=== PATIENT | female | born 1990 | race Caucasian/White ===

== ENCOUNTER 2017-03-04 11:03 | Inpatient (IN) | payer MEDICAID ==
[~2017-03-04 11:03] MED LIST: Marcaine Mpf 0.5% Vial 30 Ml IV ONE; PHENYLEPHRINE HCL IV ONE; Pitocin 10 UNITS/ML IV ONE; Zofran 4 MG/2 ML VIAL IV ONE
[2017-03-04 11:36] LABS: BASOPHIL % 0.3 % (0.0-0.4); Eosinophil % 2.1 % (0.00-5.0); Granulocytes % 69.7 % (36.0-66.0); Lymphocytes % 20.3 % (24.0-44.0); Mean Cell Volume 89.1 fl (78-100); Mean Corpuscular Hemoglobin 29.4 pg (26-32); Mean Platelet Volume 11.9 fl (6-9.5); Monocytes % 7.6 % (0.0-12.0); Platelet Count 132 K/mm3 (150-450); Red Blood Count 3.77 M/mm3 (4.1-5.4); White Blood Count 13.7 K/mm3 (4.0-10.5)
[2017-03-04] MEDS: Lactated Ringers 1,000 ML IV SCH ×2 (12:00→15:24)
[2017-03-04 12:01] LABS: ALBUMIN 2.2 g/dL (3.4-5.0); ALKALINE PHOSPHATASE 183 U/L (46-116); ANION GAP 15.7 MEQ/L (5-15); BLOOD UREA NITROGEN 15 mg/dL (9-20); CHLORIDE 107 mEq/L (98-107); Carbon Dioxide 19.7 mEq/L (21-32); Glucose 78 MG/DL (70-110); Potassium 4.3 mEq/L (3.5-5.1); SGOT/AST 51 U/L (15-37); SGPT/ALT 38 U/L (12-78); SODIUM 138 mEq/L (136-145); Total Protein 6.3 gm/dL (6.4-8.2)
[2017-03-04] MEDS ORDERED: Lactated Ringers 1,000 ML IV ONE ×2 (12:09→15:44)
[2017-03-04 12:10] LABS: INR 0.89 (0.8-3.0); PROTIME 9.9 SECONDS (9.95-12.35)
[2017-03-04 12:22] LABS: PTT 27.8 SECONDS (25.3-37.0)
[2017-03-04] MEDS: Magnesium Sulfate 40 Gm/1000 Ml H2O Premix*** 1,000 ML IV SCH (12:30)
[2017-03-04] MEDS ORDERED: Calcium Gluconate 10% 1000 MG IV ONE (12:50)
[2017-03-04] MEDS ORDERED: BRETHINE 1 MG/ML SQ PRN (13:43)
[2017-03-04] MEDS ORDERED: Astramorph-Pf 5 MG/10 ML IV ONE (14:00)
[2017-03-04] MEDS ORDERED: PITOCIN 30 UNITS/ LR 500 ML 500 ML IV SCH (14:00)
[2017-03-04 14:10] LABS: Collection Type VOID
[2017-03-04 14:11] LABS: Bacteria FEW /HPF (NEGATIVE); COMPLETE URINE MICROSCOPIC? YES; Epithelial Cells FEW /HPF (FEW); Mucus MODERATE /HPF (NEGATIVE); WBC 0-2 /HPF (0-5)
[2017-03-04] MEDS ORDERED: Reglan 10 MG/2 ML IV SCH (15:15)
[2017-03-04] MEDS ORDERED: Pepcid 20 MG VIAL IV SCH (15:15)
[2017-03-04] MEDS ORDERED: BICITRA 30 ML CUP PO SCH (15:15)
[2017-03-04] MEDS ORDERED: KEFZOL 1 GM ONE (15:44)
[2017-03-04] MEDS ORDERED: HOLD NARCOTIC ANALGESICS AND SEDATIVES X24 HR MC PRN (18:50)
[2017-03-04] MEDS ORDERED: DEMEROL 50 MG IV PRN (18:50)
[2017-03-04] MEDS ORDERED: PERCOCET TABLET 5/325MG PO PRN (18:50)
[2017-03-04] MEDS ORDERED: BENADRYL 50 MG/ML IV PRN (18:50)
[2017-03-04] MEDS ORDERED: Narcan 0.4 MG/ML IV PRN (18:50)
[2017-03-04] MEDS ORDERED: Nubain 10 MG/ML IV PRN (18:50)
[2017-03-04] MEDS ORDERED: Zofran 4 MG/2 ML VIAL IV PRN (18:50)
[2017-03-04] MEDS ORDERED: CLARITIN 10 MG PO PRN (18:50)
[2017-03-04] MEDS ORDERED: MORPHINE SULFATE 2 MG INJ IV PRN (18:50)
[2017-03-04] MEDS ORDERED: Anucort-HC SUPPOSITORY PR PRN (18:53)
[2017-03-04] MEDS ORDERED: MOTRIN 400 MG PO PRN (18:53)
[2017-03-04] MEDS ORDERED: CORTISONE 1% CREAM TP PRN (18:53)
[2017-03-04] MEDS ORDERED: LANSINOH 40 GM TOP PRN (18:53)
[2017-03-04] MEDS ORDERED: Dulcolax 10 MG SUPP PR PRN (18:53)
[2017-03-04] MEDS ORDERED: Phenergan 25 MG INJ IM PRN (18:53)
[2017-03-04] MEDS ORDERED: Adacel Vial IM ONE (18:53)
[2017-03-04] MEDS ORDERED: DEMEROL 75 MG IM PRN (18:53)
[2017-03-04] MEDS ORDERED: Dermoplast Spray TP PRN (18:53)
[2017-03-04] MEDS ORDERED: M-M-R II Vaccine With Diluent SQ ONE (18:53)
[2017-03-04] MEDS: Dextrose 5%-Lr IV Solution 1000 ML 1,000 ML IV SCH (19:02)
[2017-03-04 20:34] LABS: BASOPHIL % 0.1 % (0.0-0.4); Eosinophil % 0.3 % (0.00-5.0); Lymphocytes % 8.3 % (24.0-44.0); Mean Platelet Volume 11.4 fl (6-9.5); Monocytes % 5.3 % (0.0-12.0); Platelet Count 119 K/mm3 (150-450); Red Blood Count 3.56 M/mm3 (4.1-5.4); Red Cell Distribution Width 13.9 % (11.5-14.0)
[2017-03-04 20:36] LABS: Mean Corpuscular Hemoglobin 29.7 pg (26-32)
[2017-03-04] MEDS ORDERED: Cervidil 10 MG VAG SCH (22:00)
[2017-03-05] MEDS ORDERED: TRANDATE 20 MG/5 ML SYRINGE IV ONE (06:15)
[2017-03-05] MEDS: Magnesium Sulfate 40 Gm/1000 Ml H2O Premix*** 1,000 ML IV SCH ×2 (06:25→20:58)
[2017-03-05 06:36] LABS: BASOPHIL % 0.2 % (0.0-0.4); Eosinophil % 0.7 % (0.00-5.0); Granulocytes % 83.7 % (36.0-66.0); Lymphocytes % 10.3 % (24.0-44.0); Mean Cell Volume 89.1 fl (78-100); Mean Corpuscular Hemoglobin 29.3 pg (26-32); Mean Platelet Volume 11.1 fl (6-9.5); Monocytes % 5.1 % (0.0-12.0); Platelet Count 81 K/mm3 (150-450); Red Blood Count 3.58 M/mm3 (4.1-5.4); White Blood Count 16.2 K/mm3 (4.0-10.5)
[2017-03-05] MEDS ORDERED: TRANDATE 100MG/20 ML MDV IV ONE (06:43)
[2017-03-05 06:53] LABS: INR 0.88 (0.8-3.0); PROTIME 9.8 SECONDS (9.95-12.35)
[2017-03-05 06:55] LABS: PTT 28.6 SECONDS (25.3-37.0)
[2017-03-05 07:11] LABS: ALBUMIN 2.2 g/dL (3.4-5.0); ALKALINE PHOSPHATASE 169 U/L (46-116); ANION GAP 14.4 MEQ/L (5-15); BLOOD UREA NITROGEN 9 mg/dL (9-20); CHLORIDE 101 mEq/L (98-107); Carbon Dioxide 22.9 mEq/L (21-32); Glucose 123 MG/DL (70-110); Potassium 4.1 mEq/L (3.5-5.1); SGOT/AST 159 U/L (15-37); SGPT/ALT 99 U/L (12-78); SODIUM 134 mEq/L (136-145); Total Protein 5.8 gm/dL (6.4-8.2)
[2017-03-05] MEDS: Colace 100 MG PO SCH ×2 (08:26→21:47)
[2017-03-05] MEDS: Trandate 100 MG PO SCH ×2 (08:27→21:47)
[2017-03-05] MEDS: FERREX 150 PO SCH (08:27)
--- NOTE | 2017-03-05 08:42 | OP ---
THIS REPORT WAS AMENDED ON 03/05/17. SURGERY DATE: 03/04/17 SURGERY TIME: 1550 PREOPERATIVE DIAGNOSES: 1. SEVERE PRE-ECLAMPSIA. POSTOPERATIVE DIAGNOSES: 1. SEVERE PRE-ECLAMPSIA. PROCEDURE: 1. Primary low transverse section. SURGEON: Brandan Anglin M.D. ANESTHESIA: Spinal. ESTIMATED BLOOD LOSS: 400 cc. URINE: 300 cc of clear, straw-colored urine. IV FLUIDS: 1200 cc of crystalloid. SPECIMENS: Placenta was sent for pathology. DESCRIPTION OF PROCEDURE: This patient is a patient of Dr. Ibanez's who had approximately 6 Gm proteinuria with elevation of BP's in the 160-170 systolic range. She also had a platelet count of 132,000 which was decreased in the last couple of weeks. She also had an AST mildly elevated at 51 with an Alk. phos. of 183. ALT was normal at 38. She had been started on magnesium, but the decision was made to elect with primary low transverse due to her severe pre-eclampsia and concern for slight abnormality on HELLP syndrome labs. I discussed with her the risks, benefits, and alternatives of primary low transverse and she elected to proceed and informed consent was signed. I discussed the risks of the procedure including bleeding, infection, and damage to surrounding tissues. The patient was taken to the OR and underwent spinal anesthesia. She was prepped and draped in the usual sterile fashion. After adequate level of anesthesia was assessed, a low transverse skin incision was made by knife and carried down through the subcutaneous fat to the level of the fascia. The fascia was nicked on both sides of the midline and then the fascial incision was extended in a horizontal fashion using curved Harkins scissors. The superior free edge of the fascia was grasped with Rebecca clamps. The underlying rectus muscles were dissected free. The same was repeated inferiorly. The peritoneal cavity was opened and extended in a horizontal fashion. A bladder flap was created and reflected over the lower uterine segment. Horizontal uterine incision was made by knife and carried down to the level of the amniotic membranes. Was carefully artificially ruptured. There was a green, thin, meconium-stained fluid encountered. A viable male was delivered from the vertex straight occiput posterior presentation with a strong cry immediately present upon delivery. Cord was clamped and cut and Dr. Ibanez broke scrub after his oropharynx and nares were also bulb suctioned free. The uterus was exteriorized and the placenta was manually removed from the uterine cavity. The uterine cavity was sponge curetted clean with a Lap sponge and then, the uterine incision was closed with #1 chromic in a running, locked fashion. Good closure and good hemostasis were achieved. The posterior cul-de-sac was wiped free of blood and clot and then, the uterus was returned to the peritoneal cavity. There was a small area of oozing in the left lower area just inferior to the incision. This was controlled with 2-0 Vicryl figure-of-8 suture X 1 with good hemostasis. The remainder of the uterine incision was again inspected and noted to be hemostatic. The fascia was closed with 0 Vicryl in a running fashion with good closure and good hemostasis. The subcutaneous fat was irrigated with warm, sterile saline. Any areas of bleeding were cauterized with electrocautery. Finally, the skin layer was closed with 4-0 undyed Vicryl in running subcuticular fashion. Steri-Strips and occlusive dressing were placed over the incision and the patient was transferred to the recovery room in excellent condition.
[2017-03-05] MEDS: Dextrose 5%-Lr IV Solution 1000 ML 1,000 ML IV SCH (11:13)
[2017-03-05] MEDS: Mylicon 80MG PO PRN ×2 (11:13→14:59)
[2017-03-05] MEDS: TRANDATE 100MG/20 ML MDV IV PRN (15:01)
[2017-03-05] MEDS: TYLENOL EXTRA STRENGTH 500 MG PO PRN ×2 (15:10→20:55)
--- NOTE | 2017-03-05 15:18 | XRAY ---
Indication: Short of breath. Right shoulder pain. Comparison: None Portable chest demonstrates normal heart, lungs, and bony thorax.
[2017-03-05 16:17] LABS: BASOPHIL % 0.2 % (0.0-0.4); Eosinophil % 1.2 % (0.00-5.0); Granulocytes % 84.1 % (36.0-66.0); Lymphocytes % 9.4 % (24.0-44.0); Mean Cell Volume 88.9 fl (78-100); Mean Platelet Volume 11.7 fl (6-9.5); Monocytes % 5.1 % (0.0-12.0); Platelet Count 51 K/mm3 (150-450); Red Blood Count 3.41 M/mm3 (4.1-5.4); Red Cell Distribution Width 14.2 % (11.5-14.0); White Blood Count 12.1 K/mm3 (4.0-10.5)
--- NOTE | 2017-03-05 16:36 | XRAY ---
Indication: Elevated liver enzymes. HELLP syndrome. Two-dimensional right upper quadrant abdominal sonogram performed. Comparison: None Gallbladder normally distended without gallstones, wall thickening, or pericholecystic fluid. Common bile duct measures 4.2 mm. No intrahepatic biliary distention or hepatomegaly. Remaining visualized portions of the liver, pancreas, and right kidney appear sonographically unremarkable. Right kidney measures 10.4 cm in length. No ascites. Impression: Negative right upper quadrant sonogram.
[2017-03-06] MEDS: TRANDATE 100MG/20 ML MDV IV PRN (03:57)
[2017-03-06] MEDS: NORCO 5/325 MG PO PRN ×3 (04:18→15:50)
[2017-03-06 06:55] LABS: BASOPHIL % 0.2 % (0.0-0.4); Eosinophil % 1.7 % (0.00-5.0); Granulocytes % 79.3 % (36.0-66.0); Lymphocytes % 13.6 % (24.0-44.0); Mean Cell Volume 88.7 fl (78-100); Mean Platelet Volume 12.1 fl (6-9.5); Monocytes % 5.2 % (0.0-12.0); Platelet Count 43 K/mm3 (150-450); Red Blood Count 3.44 M/mm3 (4.1-5.4); Red Cell Distribution Width 14.4 % (11.5-14.0); White Blood Count 14.1 K/mm3 (4.0-10.5)
[2017-03-06 07:21] LABS: INR 0.91 (0.8-3.0); PROTIME 10.3 SECONDS (9.95-12.35)
[2017-03-06 07:24] LABS: PTT 29.4 SECONDS (25.3-37.0)
[2017-03-06 07:38] LABS: ALBUMIN 2.2 g/dL (3.4-5.0); ALKALINE PHOSPHATASE 157 U/L (46-116); ANION GAP 10.8 MEQ/L (5-15); BLOOD UREA NITROGEN 6 mg/dL (9-20); CHLORIDE 104 mEq/L (98-107); Carbon Dioxide 29.1 mEq/L (21-32); Glucose 91 MG/DL (70-110); Potassium 4.5 mEq/L (3.5-5.1); SGOT/AST 211 U/L (15-37); SGPT/ALT 185 U/L (12-78); SODIUM 139 mEq/L (136-145); Total Protein 6.6 gm/dL (6.4-8.2)
[2017-03-06] MEDS ORDERED: Trandate 100 MG PO SCH (07:53)
[2017-03-06] MEDS ORDERED: Adalat CC 30 MG TABLET PO SCH (10:00)
[2017-03-06] MEDS: Trandate 100 MG PO SCH ×2 (10:20→22:13)
[2017-03-06] MEDS: Colace 100 MG PO SCH ×3 (10:20→22:13)
[2017-03-06] MEDS: FERREX 150 PO SCH (10:20)
[2017-03-06] MEDS: Lactated Ringers 1,000 ML IV SCH ×5 (11:50→14:51)
[2017-03-06] MEDS: Sodium Chloride 0.9% 1000 ML 1,000 ML IV SCH ×2 (13:20→22:13)
[2017-03-06] MEDS: Dextrose 5%-Lr IV Solution 1000 ML 1,000 ML IV SCH ×3 (14:51→14:53)
[2017-03-06 14:58] VITALS: O2SAT 98
[2017-03-06] MEDS ORDERED: Trandate 100 MG PO ONE (15:46)
[2017-03-07] MEDS: NORCO 5/325 MG PO PRN ×2 (04:08→10:33)
[2017-03-07 05:42] LABS: Mean Cell Volume 91.4 fl (78-100); Mean Corpuscular Hemoglobin 29.1 pg (26-32); Mean Platelet Volume 12.5 fl (6-9.5); Platelet Count 58 K/mm3 (150-450); Red Blood Count 2.78 M/mm3 (4.1-5.4); Red Cell Distribution Width 14.9 % (11.5-14.0); White Blood Count 15.1 K/mm3 (4.0-10.5)
[2017-03-07 06:30] LABS: ALBUMIN 1.9 g/dL (3.4-5.0); ALKALINE PHOSPHATASE 130 U/L (46-116); ANION GAP 11.4 MEQ/L (5-15); BLOOD UREA NITROGEN 9 mg/dL (9-20); CHLORIDE 109 mEq/L (98-107); Carbon Dioxide 24.6 mEq/L (21-32); Glucose 93 MG/DL (70-110); SGOT/AST 63 U/L (15-37); SGPT/ALT 102 U/L (12-78); SODIUM 141 mEq/L (136-145); Total Protein 5.8 gm/dL (6.4-8.2)
[2017-03-07 06:45] LABS: BAND 6 % (0.0-2.0); Eosinophil 3 % (0.00-3.0); Total Cells Counted 100
[2017-03-07 06:48] LABS: Platelet Estimate DECREASED (NORMAL)
[2017-03-07] MEDS: Trandate 100 MG PO SCH ×2 (10:11→21:39)
[2017-03-07] MEDS: FERREX 150 PO SCH (10:11)
[2017-03-07] MEDS: Colace 100 MG PO SCH ×2 (10:11→21:39)
[2017-03-07] MEDS: Adalat CC 30 MG TABLET PO SCH (10:12)
[2017-03-07] MEDS: Sodium Chloride 0.9% 1000 ML 1,000 ML IV SCH ×2 (10:18→20:17)
[2017-03-07] MEDS: TYLENOL EXTRA STRENGTH 500 MG PO PRN (21:39)
[2017-03-08 05:53] LABS: ALBUMIN 2.2 g/dL (3.4-5.0); ALKALINE PHOSPHATASE 147 U/L (46-116); ANION GAP 11.4 MEQ/L (5-15); BASOPHIL % 0.2 % (0.0-0.4); BLOOD UREA NITROGEN 7 mg/dL (9-20); CHLORIDE 105 mEq/L (98-107); Carbon Dioxide 24.9 mEq/L (21-32); Eosinophil % 2.8 % (0.00-5.0); Glucose 86 MG/DL (70-110); Granulocytes % 77.3 % (36.0-66.0); Lymphocytes % 16.1 % (24.0-44.0); Mean Cell Volume 91.8 fl (78-100); Mean Corpuscular Hemoglobin 29.4 pg (26-32); Mean Platelet Volume 11.7 fl (6-9.5); Monocytes % 3.6 % (0.0-12.0); Platelet Count 103 K/mm3 (150-450); Potassium 4.3 mEq/L (3.5-5.1); Red Blood Count 3.06 M/mm3 (4.1-5.4); SGOT/AST 55 U/L (15-37); SGPT/ALT 96 U/L (12-78); SODIUM 137 mEq/L (136-145); Total Protein 6.5 gm/dL (6.4-8.2); White Blood Count 13.8 K/mm3 (4.0-10.5)
[2017-03-08] MEDS: Sodium Chloride 0.9% 1000 ML 1,000 ML IV SCH ×2 (06:07→15:45)
--- NOTE | 2017-03-08 08:46 | PCM.NOTE ---
Date and Time: 03/08/17 0844 Subjective Assessment: patient doing well, no problems or concerns. pain controlled, tolerating po intake. Objective Exam General Appearance: no apparent distress Neurologic Exam: alert, oriented x 3 Respiratory Exam: normal breath sounds, lungs clear, No respiratory distress Cardiovascular Exam: regular rate/rhythm, normal heart sounds Gastrointestinal/Abdomen Exam: soft, No tenderness, No mass Extremity Exam: normal inspection, normal range of motion, other (DTR 2+ BLE, trace edema) OBJECTIVE DATA Vital Signs: Vital Signs - 24 hr Temp Pulse Resp BP 03/08/17 08:00 98.3 F 91 H 18 141/83 03/08/17 06:00 153/82 03/08/17 04:00 97.8 F 69 128/71 03/08/17 02:07 128/71 03/08/17 00:00 98.4 F 88 131/75 03/07/17 22:00 135/75 03/07/17 20:00 98.4 F 90 134/80 03/07/17 16:00 80 20 137/68 03/07/17 12:00 98.6 F 66 20 136/77 Pain Assessment - Last Documented Pain Intensity [Anterior] 3 Pain Intensity 0 Pain Scale Used 0-10 Pain Scale Intake and Output: Intake & Output 03/05/17 03/06/17 03/07/17 03/08/17 11:59 11:59 11:59 11:59 Intake Total 3975 8840 3612 600 Output Total 3200 6050 1900 5850 Balance 775 2790 1712 -5250 Weight 72.575 kg Lab Results: Lab Results-Last 24 Hours 03/08/17 03/08/17 Range/Units 05:16 05:16 WBC 13.8 H (4.0-10.5) K/mm3 RBC 3.06 L (4.1-5.4) M/mm3 Hgb 9.0 L (12.0-16.0) gm/dl Hct 28.1 L (35-47) % MCV 91.8 (78-100) fl MCH 29.4 (26-32) pg MCHC 32.0 (32-36) g/dl RDW 15.0 H (11.5-14.0) % Plt Count 103 L (150-450) K/mm3 MPV 11.7 H (6-9.5) fl Gran % 77.3 H (36.0-66.0) % Lymphocytes % 16.1 L (24.0-44.0) % Monocytes % 3.6 (0.0-12.0) % Eosinophils % 2.8 (0.00-5.0) % Basophils % 0.2 (0.0-0.4) % Basophils # 0.03 (0-0.4) Sodium 137 (136-145) mEq/L Potassium 4.3 (3.5-5.1) mEq/L Chloride 105 (98-107) mEq/L Carbon Dioxide 24.9 (21-32) mEq/L Anion Gap 11.4 (5-15) MEQ/L BUN 7 L (9-20) mg/dL Creatinine 0.62 (0.55-1.30) mg/dl Estimated GFR > 60 ML/MIN Glucose 86 (70-110) MG/DL Calcium 8.6 (8.5-10.1) mg/dL Total Bilirubin 0.40 (0.2-1.0) mg/dL AST 55 H (15-37) U/L ALT 96 H (12-78) U/L Alkaline Phosphatase 147 H (46-116) U/L Serum Total Protein 6.5 (6.4-8.2) gm/dL Albumin 2.2 L (3.4-5.0) g/dL Assessment/Plan (1) HELLP syndrome Current Visit: Yes Status: Acute Assessment & Plan: improving, repeat labs in the am Code(s): O14.20 - HELLP SYNDROME (HELLP), UNSPECIFIED TRIMESTER (2) Severe pre-eclampsia Current Visit: Yes Status: Acute Assessment & Plan: continue labetalol and nifedipine Code(s): O14.10 - SEVERE PRE-ECLAMPSIA, UNSPECIFIED TRIMESTER (3) delivery delivered Current Visit: Yes Status: Acute Code(s): O82 - ENCOUNTER FOR DELIVERY WITHOUT INDICATION
[2017-03-08] MEDS: Adalat CC 30 MG TABLET PO SCH (10:33)
[2017-03-08] MEDS: Trandate 100 MG PO SCH ×2 (10:33→22:13)
[2017-03-08] MEDS: FERREX 150 PO SCH (10:34)
[2017-03-08] MEDS: Colace 100 MG PO SCH ×2 (10:37→22:13)
[2017-03-09 05:54] LABS: BASOPHIL % 0.2 % (0.0-0.4); Eosinophil % 3.5 % (0.00-5.0); Granulocytes % 71.8 % (36.0-66.0); Lymphocytes % 18.6 % (24.0-44.0); Mean Cell Volume 91.5 fl (78-100); Mean Corpuscular Hemoglobin 29.8 pg (26-32); Mean Platelet Volume 11.1 fl (6-9.5); Monocytes % 5.9 % (0.0-12.0); Platelet Count 145 K/mm3 (150-450); Red Blood Count 3.05 M/mm3 (4.1-5.4); Red Cell Distribution Width 15.1 % (11.5-14.0)
[2017-03-09 06:08] LABS: ALBUMIN 2.3 g/dL (3.4-5.0); ALKALINE PHOSPHATASE 155 U/L (46-116); ANION GAP 13.9 MEQ/L (5-15); BLOOD UREA NITROGEN 9 mg/dL (9-20); CHLORIDE 105 mEq/L (98-107); Carbon Dioxide 25.5 mEq/L (21-32); Glucose 80 MG/DL (70-110); Potassium 4.2 mEq/L (3.5-5.1); SGOT/AST 50 U/L (15-37); SGPT/ALT 92 U/L (12-78); SODIUM 140 mEq/L (136-145); Total Protein 6.9 gm/dL (6.4-8.2)
--- NOTE | 2017-03-09 08:10 | PCM.DS ---
Discharge Summary Date of Admission: 03/04/17 15:00 Admitting Physician: HORTENCIA PURVIS Consults: Consults on Case 03/04/17 12:01 Notify Physician ROUTINE 03/04/17 15:10 Notify Anesthesia Provider ROUTINE 03/04/17 16:44 Notify Anesthesia Provider PRN 03/04/17 18:50 Notify Anesthesia Provider PRN Primary Care Provider: HORTENCIA PURVIS Allergies Allergies No Known Drug Allergies Allergy (Unverified 03/04/17 13:08) Hospital Summary - Hospital Course Hospital Course: Doing well, out of bed, tolerating po well. Taking norco for pain. - Vitals & Intake/Output Vital Signs: Vital Signs Temperature 98.5 F 03/09/17 04:00 Pulse Rate 77 03/09/17 04:00 Respiratory Rate 20 03/08/17 16:00 Blood Pressure 137/82 03/09/17 04:00 O2 Sat by Pulse Oximetry 98 03/06/17 14:57 Intake & Output: Intake & Output 03/06/17 03/07/17 03/08/17 03/09/17 11:59 11:59 11:59 11:59 Intake Total 8840 3612 600 4539 Output Total 6050 1900 5850 3100 Balance 2790 1712 -0715 1439 - Lab Result Diagrams: 03/09/17 05:00 03/09/17 05:00 Lab Results-Last 24 Hrs: Lab Results-Last 24 Hours 03/09/17 03/09/17 Range/Units 05:00 05:00 WBC 13.0 H (4.0-10.5) K/mm3 RBC 3.05 L (4.1-5.4) M/mm3 Hgb 9.1 L (12.0-16.0) gm/dl Hct 27.9 L (35-47) % MCV 91.5 (78-100) fl MCH 29.8 (26-32) pg MCHC 32.6 (32-36) g/dl RDW 15.1 H (11.5-14.0) % Plt Count 145 L (150-450) K/mm3 MPV 11.1 H (6-9.5) fl Gran % 71.8 H (36.0-66.0) % Lymphocytes % 18.6 L (24.0-44.0) % Monocytes % 5.9 (0.0-12.0) % Eosinophils % 3.5 (0.00-5.0) % Basophils % 0.2 (0.0-0.4) % Basophils # 0.03 (0-0.4) Sodium 140 (136-145) mEq/L Potassium 4.2 (3.5-5.1) mEq/L Chloride 105 (98-107) mEq/L Carbon Dioxide 25.5 (21-32) mEq/L Anion Gap 13.9 (5-15) MEQ/L BUN 9 (9-20) mg/dL Creatinine 0.57 (0.55-1.30) mg/dl Estimated GFR > 60 ML/MIN Glucose 80 (70-110) MG/DL Calcium 8.9 (8.5-10.1) mg/dL Total Bilirubin 0.50 (0.2-1.0) mg/dL AST 50 H (15-37) U/L ALT 92 H (12-78) U/L Alkaline Phosphatase 155 H (46-116) U/L Serum Total Protein 6.9 (6.4-8.2) gm/dL Albumin 2.3 L (3.4-5.0) g/dL Micro Results-Entire Visit: Microbiology 03/04/17 14:25 Urine Culture - Final Catherized NO GROWTH Discharge Exam General Appearance: no apparent distress Neurologic Exam: alert, oriented x 3, cooperative Skin Exam: normal color, warm, dry Respiratory Exam: normal breath sounds, No crackles/rales, No rhonchi, No wheezing Cardiovascular Exam: regular rate/rhythm, normal heart sounds, No murmur Gastrointestinal/Abdomen Exam: soft, tenderness (at umbilicus), other (wound c/d /i, no bleeding), No distention Extremity Exam: pedal edema (2+ on R, 1+ on L) Back Exam: normal inspection Final Diagnosis/Problem List - Final Discharge Diagnosis/Problem (1) delivery delivered Current Visit: Yes Status: Acute Assessment & Plan: Doing well, home on norco. (2) HELLP syndrome Current Visit: Yes Status: Acute Assessment & Plan: Labs are much better, platelets nearly back to normal. AST/ALT in the 50s, expect may take several weeks to normalize. Will recheck in 1 week. (3) Severe pre-eclampsia Current Visit: Yes Status: Acute Assessment & Plan: BP are controlled on po labetalol and nifedipine. Home on both meds and f/u in1 week; will slowly d/c meds as tolerated. - Discharge Disposition: Home, Self-Care Condition: Stable Prescriptions: New Ferrous Sulfate 325 mg [Feosol 325 mg] 325 mg PO DAILY #30 tablet Nifedipine [Nifedipine ER] 60 mg PO DAILY #30 tab.er.24 Hydrocodone Bit/Acetaminophen [Halsey 10-325 Tablet] 1 each PO Q6H PRN #30 tablet PRN Reason: Pain Labetalol HCl 100 mg [Trandate 100 MG] 100 mg PO BID #60 tablet Continue Vits W-Ca,Fe,FA(<1Mg) [] 1 cap PO DAILY
[2017-03-09 10:10] VITALS: BP 140/82; PULSE 94
[2017-03-09 15:10] LABS: HEPATITIS B VIRUS CORE TOT AB Reactive (Non Reactive)
== END 2017-03-09 10:20 | disposition home or self-care (01) | DRG 766 ==
LOC: OB 11:03 → OBSVTOIN 15:00 → OB 15:00
PROVIDERS: ADMIT Family Medicine; ATTEND Family Medicine
PROC: 10D00Z1 Extraction of Products of Conception, Low, Open Approach (ICD-10-PCS; principal; 2017-03-04)
DX: O14.14 Severe pre-eclampsia complicating childbirth (principal); Z3A.37 37 weeks gestation of pregnancy; Z37.0 Single live birth; O14.24 HELLP syndrome, complicating childbirth
CPT/HCPCS: 01961; 36415; 62322; 64425; 71010; 76705; 76942; 80053; 80074; 80307; 81000; 81002; 82951; 82952; 83735; 84156; 84550; 85025; 85610; 85730; 87086; 88307; 90471; 90472; 90707; 90715; 94799; 99140; G0378; J0610; J0690; J2274; J2370; J2405; J2590; L0625; A9270-GY